=== PATIENT | male | born 1985 | race Caucasian/White ===

== ENCOUNTER 2019-01-22 09:41 | Day surgery (SDC) | payer MEDICARE ==
[~2019-01-22] VITALS: Ht 185.4 cm; Wt 184.1 kg
[2019-01-22] MEDS ORDERED: VOLTAREN75 MG PO (11:51)
[2019-01-22] MEDS ORDERED: LIPITOR40 MG PO (11:52)
[2019-01-22] MEDS ORDERED: CYCLOBENZAPRINE10 MG PO (11:52)
[2019-01-22 11:54] VITALS: BP 146/88; Ht 185.4 cm; Wt 184.1 kg
--- NOTE | 2019-01-23 15:07 | OP ---
PATIENT NAME: CELESTE CANO MEDICAL RECORD: [id number] LOCATION:[facility] ADMISSION DATE: SURGEON: DUY STUBBS DO DATE OF OPERATION: 01/22/2019 PROCEDURE: Colonoscopy with biopsies. INDICATIONS FOR PROCEDURE: Change in bowel habits and family history positive for colon cancer in the patient's father. SCOPE: Olympus video pediatric colonoscope. MEDICATIONS: Propofol 800 mg IV per anesthesia. WITHDRAWAL TIME: 12 minutes. ESTIMATED BLOOD LOSS: Minimal. COMPLICATIONS: None. FINDINGS: Informed consent was given. The patient was made comfortable with the above medication. After reaching an adequate level of sedation by slow IV push, the patient was placed on his left side. A digital rectal examination was performed and was normal. The endoscope was then advanced under direct visualization through the rectum to the cecum and terminal ileum. The endoscope was slowly withdrawn and mucosa was carefully examined. The prep quality was good. In the terminal ileum, there were multiple small punctate ulcerations. Appearances favor result of NSAID use. Cold forceps biopsies were taken to submit for histopathology. There was evidence of moderate diverticulosis involving the descending and sigmoid colon. There was no evidence of diverticulitis. In the descending colon, there was a polypoid lesion that was looked at closely for a period of time. It was determined that it was possible that it could be a diverticulum. Cautery was used on this site as opposed to a polypectomy. Retroflexion was performed in the rectum with visualization of grade I internal hemorrhoids without bleeding. The endoscope was withdrawn from the patient. The patient tolerated the procedure well and there were no complications. IMPRESSION: 1. Moderate diverticulosis of the descending and sigmoid colon. 2. Grade I internal hemorrhoids without bleeding. 3. Small ulcerations in the terminal ileum, which favor NSAID use as an etiology. PLAN AND RECOMMENDATIONS: 1. Discharge home when recovery parameters are met. 2. Follow up biopsy specimen results. 3. High fiber diet. 4. Continue current medications. 5. Recall in 5 years based on family history of colon cancer. TRANSINT:[id number] Voice Confirmation ID: [id number] DOCUMENT ID: [id number] OPERATIVE REPORT [id number] CELESTE CANO DUY STUBBS DO at 1322 CC: [id number] DICTATION DATE: 01/22/19 1320 [employer] OPERATOR: 08/26/19 1327 [facility] [place] 01/22/[address] [place] [id number] [facility] [place] [address]
== END 2019-01-22 14:10 | disposition home or self-care (01) ==
LOC: D.OPS 09:41
PROVIDERS: ATTEND Internal Medicine Gastroenterology
DX: K57.30 Diverticulosis of large intestine without perforation or abscess without bleeding (principal); K64.0 First degree hemorrhoids; K63.3 Ulcer of intestine; Z80.0 Family history of malignant neoplasm of digestive organs; Z01.812 Encounter for preprocedural laboratory examination